=== PATIENT | female | born 1990 | race African-American/Black ===

== ENCOUNTER 2021-09-01 15:59 | Emergency (ER) | payer OTHER ==
[2021-09-01] MEDS ORDERED: Ketorolac Tromethamine 30 MG/ML VIAL ONE (17:22)
== END 2021-09-01 17:34 | disposition home or self-care (01) ==
LOC: CSHERS 15:59
DX: M54.50 Low back pain, unspecified (principal); M79.662 Pain in left lower leg
CPT/HCPCS: 96372; 99283; J1885